=== PATIENT | female | born 1995 | race Caucasian/White ===

== ENCOUNTER 2022-07-27 17:22 | Observation (INO) | payer BC ==
--- NOTE | 2022-07-27 17:36 | ED ---
General Adult HPI - General Source: patient, RN notes reviewed Mode of arrival: ambulatory <Jerri Tai - Last Filed: 07/28/22 02:07> <Rose Cardona - Last Filed: 07/28/22 23:05> - General Chief complaint: ENT Stated complaint: Throat pain Time Seen by Provider: 07/27/22 17:23 - History of Present Illness Initial comments: 26 year old female with no significant past medical history presents to the emergency department with a chief complaint of sore throat. She reports that she has had a sore throat for 4 days. She was seen at her PCP who started her on Augmentin. She reportssymptomatically relief to starting the antibiotic. She is reporting accompanying symptoms of fever, cough, pulse limitations. She denies any nausea, vomiting, chest pain, shortness of breath, dyspnea. She reports that this has never happened before. (Jerri Tai) - Related Data Home Medications Medication Instructions Recorded Confirmed Amoxic-Pot Clav 875-125Mg 1 tab PO BID 07/27/22 07/27/22 [Augmentin 875-125] Dm & D-Chiro Inositol 2,060 mg PO BID 07/27/22 07/27/22 [place]-3 Fatty Acids [[place]-3] 1,000 mg PO HS 07/27/22 07/27/22 Nog-Jnae-Qigkb Acid 1 cap PO HS 07/27/22 07/27/22 [-U Capsule (formulary)] Allergies Allergy/AdvReac Type Severity Reaction Status Date / Time No Known Allergies Allergy Verified 07/27/22 17:35 Review of Systems ROS Other: All systems not noted in ROS Statement are negative. <Jerri Tai - Last Filed: 07/28/22 02:07> ROS Other: All systems not noted in ROS Statement are negative. <Rose Cardona - Last Filed: 07/28/22 23:05> ROS Statement: Those systems with pertinent positive or pertinent negative responses have been documented in the HPI. Past Medical History Additional Past Medical History / Comment(s): low iron History of Any Multi-Drug Resistant Organisms: None Reported Past Surgical History: Section Past Psychological History: No Psychological Hx Reported Smoking Status: Never smoker Past Alcohol Use History: None Reported Past Drug Use History: None Reported - Past Family History Mother Family Medical History: Hypertension <Jerri Tai - Last Filed: 07/28/22 02:07> General Exam General appearance: alert, in no apparent distress Head exam: Present: atraumatic, normocephalic, normal inspection Eye exam: Present: normal appearance, PERRL, EOMI. Absent: scleral icterus, conjunctival injection, periorbital swelling ENT exam: Present: normal exam, mucous membranes moist. Absent: normal oropharynx Expanded Mouth exam: Present: normal external inspection, tongue normal. Absent: leticia oling, trismus, muffled voice Throat exam: tonsillar erythema, tonsillomegaly, tonsillar exudate, R peritonsillar mass. negative: normal inspection Neck exam: Present: normal inspection, tenderness, lymphadenopathy. Absent: meningismus Expanded Neck exam: Present: tenderness Respiratory exam: Present: normal lung sounds bilaterally. Absent: respiratory distress, wheezes, rales, rhonchi, stridor Cardiovascular Exam: Present: regular rate, normal rhythm, normal heart sounds. Absent: systolic murmur, diastolic murmur, rubs, gallop, clicks GI/Abdominal exam: Present: soft, normal bowel sounds. Absent: distended, tenderness, guarding, rebound, rigid Extremities exam: Present: normal inspection, full ROM, normal capillary refill. Absent: tenderness, pedal edema, joint swelling, calf tenderness Back exam: Present: normal inspection Neurological exam: Present: alert, oriented X3, CN II-XII intact Psychiatric exam: Present: normal affect, normal mood Skin exam: Present: warm, dry, intact, normal color. Absent: rash <Jerri Tai - Last Filed: 07/28/22 02:07> Course <Jerri Tai - Last Filed: 07/28/22 02:07> Vital Signs 07/27/22 07/27/22 17:24 18:47 Temperature 98.7 F Pulse Rate 123 H 99 Respiratory 18 18 Rate Blood Pressure 148/102 124/77 O2 Sat by Pulse 98 95 Oximetry - Reevaluation(s) Reevaluation #1: 07/27/22 18:[address] Azevedo who agrees and accepts the patient for admission. (Jerri Tai) Medical Decision Making <Jerri Tai - Last Filed: 07/28/22 02:07> - Lab Data Result diagrams: 07/28/22 06:27 07/28/22 06:27 <Rose Cardona - Last Filed: 07/28/22 23:05> - Medical Decision Making Was pt. sent in by a medical professional or institution (LIBORIO Bonilla, SITE FOREMAN, urgent care, hospital, or long term...) When possible be specific @ -[No] Did you speak to anyone other than the patient for history (EMS, parent, family, police, friend...)? What history was obtained from this source @ -[No] Did you review nursing and triage notes (agree or disagree)? Why? @ -[I reviewed and agree with nursing and triage notes] Were old charts reviewed (outside hosp., previous admission, EMS record, old EKG, old radiological studies, urgent care reports/EKG's, long term records)? Report findings @ -[No old charts were reviewed] Differential Diagnosis (chest pain, altered mental status, abdominal pain women, abdominal pain men, vaginal bleeding, weakness, fever, dyspnea, syncope, headache, dizziness, GI bleed, back pain, seizure, CVA, palpatations, mental health, musculoskeletal)? @ -[not applicable] EKG interpreted by me (3pts min.). @ -[As above] X-rays interpreted by me (1pt min.). @ -[None done] CT interpreted by me (1pt min.). @ -[None done] U/S interpreted by me (1pt. min.). @ -[None done] What testing was considered but not performed or refused? (CT, X-rays, U/S, labs)? Why? @ -[None] What meds were considered but not given or refused? Why? @ -[None] Did you discuss the management of the patient with other professionals (professionals i.e. LIBORIO Bonilla, SITE FOREMAN, lab, RT, psych nurse, social contact worker, staff reporter, teacher, supply officer, family caseworker)? Give summary @ -[No] Was smoking cessation discussed for >3mins.? @ -[No] Was critical care preformed (if so, how long)? @ -[No] Were there social determinants of health that impacted care today? How? (Homelessness, low income, unemployed, alcoholism, drug addiction, transportation, low edu. Level, literacy, decrease access to med. care, fdc, rehab)? @ -[No] Was there de-escalation of care discussed even if they declined (Discuss DNR or withdrawal of care, Hospice)? DNR status @ -[No] What co-morbidities impacted this encounter? (DM, HTN, Smoking, COPD, CAD, Cancer, CVA, ARF, Chemo, Hep., AIDS, mental health diagnosis, sleep apnea, morbid obesity)? @ -[None] Was patient admitted / discharged? Hospital course, mention meds given and route, prescriptions, significant lab abnormalities, going to OR and other pertinent info. @ -Admission. This is a 26-year-old female who presents to the emergency department via [facility] transfer for admission and evaluation for ENT. Patient had lab work and imaging performed at [facility] which revealed a 5 mm abscess to the right peritonsillar area. White blood cell count was 9.5. Patient remains to be tachycardic however she is afebrile. Patient was given IV fluids and Toradol with symptomatic relief. Case discussed with ryan Franks group on-call who agrees and accepts the patient for admission. Case discussed with Dr. Cardona [facility] Undiagnosed new problem with uncertain prognosis? @ -[No] Drug Therapy requiring intensive monitoring for toxicity (Heparin, Nitro, Insulin, Cardizem)? @ -[No] Were any procedures done? @ -[No] Diagnosis/symptom? @ - peritonsilar abscess Acute, or Chronic, or Acute on Chronic? @ -acute Uncomplicated (without systemic symptoms) or Complicated (systemic symptoms)? @ -complicated Side effects of treatment? @ -[No] Exacerbation, Progression, or Severe Exacerbation? @ -[No] Poses a threat to life or bodily function? How? (Chest pain, USA, VT, pneumonia, PE, COPD, DKA, ARF, appy, cholecystitis, CVA, Diverticulitis, Homicidal, Suicidal, threat to staff... and all critical care pts) @ -moderate likelihood (Jerri Tai) Disposition Is patient prescribed a controlled substance at d/c from ED?: No Time of Disposition: 18:02 <Jerri Tai - Last Filed: 07/28/22 02:07> <Rose Cardona - Last Filed: 07/28/22 23:05> Clinical Impression: Sore throat, Peritonsillar abscess Disposition: ADMITTED IP TO THIS HOSP Condition: Fair
[2022-07-27] MEDS ORDERED: ACETAMINOPHEN TAB 325 MG TAB PO PRN (18:03)
[2022-07-27] MEDS ORDERED: NALOXONE 0.4 MG/ML 1 ML VIAL IV PRN (18:03)
[2022-07-27] MEDS ORDERED: IBUPROFEN 400 MG TAB PO PRN (18:03)
[2022-07-27] MEDS: SODIUM CHLORIDE 0.9% 1,000 ML IV SCH (18:49)
[2022-07-27] MEDS ORDERED: KETOROLAC 15 MG/ML 1 ML VIAL IVP STA (18:51)
[2022-07-27] MEDS: BENZOCAINE/MENTHOL LOZENG 1 EACH LOZENGE MUCOUS MEM PRN (21:33)
--- NOTE | 2022-07-28 00:32 | P.HPIM ---
History of Present Illness H&P Date: 07/27/22 The patient is a 26-year-old female with no known PMH with presented to the emergency room at [facility] with complaints of sore throat and fever. The patient states that her symptoms started this past Thursday 4 days ago and gradually progressed. She reports being seen at her PCPs clinic and was started on Augmentin 2 days ago, which did not alleviate her symptoms. She reports a T-max of 102F at home as well as predominantly right-sided sore throat 10 out of 10 on maximal intensity with odynophagia. The patient underwent a CT neck and soft tissue with contrast which revealed moderate diffuse problem and some heterogeneity of the bilateral pelvic and tonsils suggestive of tonsillitis as well as a 5 mm fluid collection suggestive of abscess in the margin of the right tonsils. There was also mild a lymphadenopathy in the neck. Laboratory for evaluation was remarkable for WBC count 9.55, hemoglobin 14.7, platelets 289, group A strep PCR negative and mononucleosis screen also negative, sodium 139, potassium 4.3, chloride 101, CO2 26.6, BUN 6.9, creatinine 0.6, glucose 97. The patient was subsequently transferred to [facility] for ENT evaluation and further management. The patient reports that her pain is improved to 5 out of 10 at the time of interview. She reports that her odynophagia is also improved significantly. She denied shortness of breath. Denied any prior history of tonsillar infections. ED documentation reviewed and case discussed with ED provider. Review of systems: Pertinent positives and negatives as discussed in HPI, a complete review of systems was performed and all other systems are negative. Physical examination: Vital signs reviewed General: non toxic, no distress, appears at stated age, morbidly obese Derm: no unusual rashes/lesions, warm Head: atraumatic, normocephalic, symmetric Eyes: EOMI, no lid lag, anicteric sclera, pupils equal round reactive to light ENT: Nose and ears atraumatic Neck: No cervical lymphadenopathy, trachea midline, supple Mouth: no lip lesion, mucus membranes moist, right-sided tonsillar exudates with tonsillar enlargement and surrounding erythema noted Cardiovascular: S1S2 reg, no murmur, positive dorsalis pedis pulse bilateral, no edema Lungs: CTA bilateral, no rhonchi, no rales, no accessory muscle use Abdominal: soft, nontender to palpation, no guarding Ext: muscle strength 5 out of 5 in all 4 extremities grossly, no gross muscle atrophy, no contractures, Neuro: CN II-XI grossly intact, no gross focal neuro deficits Psych: Alert, oriented, appropriate affect Assessment: Right peritonsillar abscess Imaging: CT neck and soft tissue with contrast which revealed moderate diffuse problem and some heterogeneity of the bilateral pelvic and tonsils suggestive of tonsillitis as well as a 5 mm fluid collection suggestive of abscess in the margin of the right tonsils. There was also mild a lymphadenopathy in the neck. Data Review: Laboratory for evaluation was remarkable for WBC count 9.55, hemoglobin 14.7, platelets 289, group A strep PCR negative and mononucleosis screen also negative, sodium 139, potassium 4.3, chloride 101, CO2 26.6, BUN 6.9, creatinine 0.6, glucose 97. Plan: -Continue clindamycin at a dose of 600 mg IV every 6 hourly -Continue IV fluids normal saline 75 mL per hour -Pain control with Motrin when necessary -ENT consulted DVT prophylaxis: Heparin subcu The patient is admitted with an anticipated less than 2 midnight stay for evaluation of peritonsillar abscess CODE STATUS: Full Code Discussed with: Patient Anticipated discharge place: Home Past Medical History Additional Past Medical History / Comment(s): low iron History of Any Multi-Drug Resistant Organisms: None Reported Past Surgical History: Section Past Psychological History: No Psychological Hx Reported Smoking Status: Never smoker Past Alcohol Use History: None Reported Past Drug Use History: None Reported - Past Family History Mother Family Medical History: Hypertension Medications and Allergies Home Medications Medication Instructions Recorded Confirmed Type Amoxic-Pot Clav 875-125Mg 1 tab PO BID 07/27/22 07/27/22 History [Augmentin 875-125] Dm & D-Chiro Inositol 2,060 mg PO BID 07/27/22 07/27/22 History [place]-3 Fatty Acids [Brandon-3] 1,000 mg PO HS 07/27/22 07/27/22 History Jcl-Zixw-Jrwns Acid 1 cap PO HS 07/27/22 07/27/22 History [-U Capsule (formulary)] Allergies Allergy/AdvReac Type Severity Reaction Status Date / Time No Known Allergies Allergy Verified 07/27/22 17:35 Physical Exam Vitals: Vital Signs Temp Pulse Pulse Resp BP BP Pulse Ox 07/27/22 21:06 97.8 F 97 18 142/90 97 07/27/22 18:47 99 18 124/77 95 07/27/22 17:24 98.7 F 123 H 18 148/102 98 Intake and Output 07/27/22 07/27/22 07/27/22 06:59 14:59 22:59 Other: Weight 130.181 kg
[2022-07-28] MEDS ORDERED: KETOROLAC 15 MG/ML 1 ML VIAL IVP STA (00:44)
[2022-07-28] MEDS: CLINDAMYCIN 600 MG in DEXTROSE 5% IN WATER 50 ML IVPB SCH ×4 (01:01→05:48)
[2022-07-28] MEDS: BENZOCAINE/MENTHOL LOZENG 1 EACH LOZENGE MUCOUS MEM PRN (06:19)
[2022-07-28] MEDS: SODIUM CHLORIDE 0.9% 1,000 ML IV SCH ×3 (09:37→19:26)
[2022-07-28] MEDS: methylPREDNISolone SOD SUCCI 125 MG/2 ML VIAL IV SCH (09:37)
[2022-07-28] MEDS: HEPARIN SODIUM,PORCINE/PF 5,000 UNIT/0.5 ML SYRINGE SQ SCH ×4 (09:37→23:56)
[2022-07-28 11:13] LABS: African American GFR (CKD) 164.3 (60.0-200.0); Anion Gap 11.7 mmol/L (10.00-18.00); BUN/Creat Ratio 26.5 Ratio (12.00-20.00); Blood Urea Nitrogen 10.6 mg/dL (9.0-27.0); Calcium 9.2 mg/dL (8.7-10.3); Carbon Dioxide 24.3 mmol/L (20.0-27.5); Non-African American GFR(CKD) 141.7 (60.0-200.0); Potassium 4.3 mmol/L (3.5-5.5)
[2022-07-28 11:14] LABS: Basophils # (A) 0.01 X 10*3/uL (0.00-0.10); Basophils % (A) 0.1 %; Eosinophils # (A) 0 X 10*3/uL (0.04-0.35); Eosinophils % (A) 0 %; HGB 13.3 g/dL (12.0-15.0); Immature Grans, Automated 0.2 %; Lymphocytes # (A) 1.41 X 10*3/uL (0.90-5.00); Lymphocytes % (A) 17.2 %; MCH 28.2 pg (27.0-32.0); MCHC 30.9 g/dL (32.0-37.0); MCV 91.3 fL (80.0-97.0); Mean Platelet Volume 11.1 fL (9.5-12.2); Monocytes # (A) 0.46 X 10*3/uL (0.20-1.00); Monocytes % (A) 5.6 %; NRBC Per 100 WBC 0 /100 WBCS (0.0-0.0); Neutrophils # (A) 6.31 X 10*3/uL (1.80-7.70); Neutrophils % (A) 76.9 %; Platelet Count 298 X 10*3/uL (140-440); RBC 4.71 X 10*6/uL (4.10-5.20); RDW 12.6 % (11.5-14.5); WBC 8.21 X 10*3/uL (4.50-10.00)
[2022-07-28] MEDS: AMPICILLIN-SULBACTAM 3 GM in SODIUM CHLORIDE 0.9% 100 ML IVPB SCH ×3 (12:32→23:55)
--- NOTE | 2022-07-28 15:30 | P.GSCN ---
History of Present Illness Consult date: 07/28/22 Reason for Consult: Severe throat pain, odontophagia, dysphasia Requesting physician: Jose M Goode History of present illness: This is a 26-year-old white female who tells me that she began having a sore throat last Thursday. He got progressively worse and on she saw her primary care physician Dr. Limon who started her on Augmentin 875. Unfortunately the infection progressed in her throat pain worsened through Thursday and Thursday. She noted on Thursday her right throat was quite swollen and on Thursday she went to the emergency room at [facility] where CAT scan was performed. The CAT scan showed palate teen tonsillar enlargement and lingual tonsillar enlargement with a right peritonsillar abscess measuring only 5 mm. Lab tests were negative mono was negative. She was transferred 5 PM yesterday to the hospital and this morning I was asked to consult. She is feeling much better on antibiotic therapy. She tells me that her throat pain is gone from a 9 due two. She is requesting discharge. Review of Systems - Constitutional Reports as per HPI Past Medical History Additional Past Medical History / Comment(s): low iron History of Any Multi-Drug Resistant Organisms: None Reported Past Surgical History: Section Past Psychological History: No Psychological Hx Reported Smoking Status: Never smoker Past Alcohol Use History: None Reported Past Drug Use History: None Reported - Past Family History Mother Family Medical History: Hypertension Medications and Allergies Home Medications Medication Instructions Recorded Confirmed Type Amoxic-Pot Clav 875-125Mg 1 tab PO BID 07/27/22 07/27/22 History [Augmentin 875-125] Dm & D-Chiro Inositol 2,060 mg PO BID 07/27/22 07/27/22 History [place]-3 Fatty Acids [[place]-3] 1,000 mg PO HS 07/27/22 07/27/22 History Shm-Ocqb-Dhqhh Acid 1 cap PO HS 07/27/22 07/27/22 History [-U Capsule (formulary)] Allergies Allergy/AdvReac Type Severity Reaction Status Date / Time No Known Allergies Allergy Verified 07/27/22 17:35 Surgical - Exam Osteopathic Statement: *. No significant issues noted on an osteopathic structural exam other than those noted in the History and Physical/Consult. Vital Signs Temp Pulse Resp BP Pulse Ox 98.7 F 123 H 18 148/102 98 07/27/22 17:24 07/27/22 17:24 07/27/22 17:24 07/27/22 17:24 07/27/22 17:24 - General well developed, well nourished, no distress, obese - Eyes PERRL, normal ocular movement - ENT Head is normocephalic the face is symmetric there's no abnormal movements, there is no tenderness to the sinuses are mastoids, there is no lesions on the scalp. Auricles well formed canals are clear. Tympanic membranes are without bulging or retraction. Nose is patent. Mouth and throat shows exudative tonsil h ypertrophy with erythema with the right side being slightly worse than the left. There is no evidence of trismus. Neck shows some cervical lymphadenopathy. normal pinna, normal nares, normal mucosa, no hearing loss, no congestion - Neck no no lymphadectomy - Respiratory normal expansion - Integumentary no rash, no growths - Neurologic normal coordination, normal sensation - Musculoskeletal normal gait, normal posture - Psychiatric oriented to time, oriented to person, oriented to place, speech is normal, memory intact Results - Labs 07/28/22 06:27 07/28/22 06:27 Abnormal Lab Results - Last 24 Hours (Table) 07/28/22 07/28/22 Range/Units 06:27 06:27 MCHC 30.9 L (32.0-37.0) g/dL Eosinophils # 0 L (0.04-0.35) X 10*3/uL Creatinine 0.4 L (0.6-1.5) mg/dL BUN/Creatinine Ratio 26.50 H (12.00-20.00) Ratio Diabetes panel 07/28/22 Range/Units 06:27 Sodium 138 (135-145) mmol/L Potassium 4.3 (3.5-5.5) mmol/L Chloride 102 (96-109) mmol/L Carbon Dioxide 24.3 (20.0-27.5) mmol/L BUN 10.6 (9.0-27.0) mg/dL Creatinine 0.4 L (0.6-1.5) mg/dL Glucose 100 (70-110) mg/dL Calcium 9.2 (8.7-10.3) mg/dL Calcium panel 07/28/22 Range/Units 06:27 Calcium 9.2 (8.7-10.3) mg/dL Pituitary panel 07/28/22 Range/Units 06:27 Sodium 138 (135-145) mmol/L Potassium 4.3 (3.5-5.5) mmol/L Chloride 102 (96-109) mmol/L Carbon Dioxide 24.3 (20.0-27.5) mmol/L BUN 10.6 (9.0-27.0) mg/dL Creatinine 0.4 L (0.6-1.5) mg/dL Glucose 100 (70-110) mg/dL Calcium 9.2 (8.7-10.3) mg/dL Adrenal panel 07/28/22 Range/Units 06:27 Sodium 138 (135-145) mmol/L Potassium 4.3 (3.5-5.5) mmol/L Chloride 102 (96-109) mmol/L Carbon Dioxide 24.3 (20.0-27.5) mmol/L BUN 10.6 (9.0-27.0) mg/dL Creatinine 0.4 L (0.6-1.5) mg/dL Glucose 100 (70-110) mg/dL Calcium 9.2 (8.7-10.3) mg/dL Assessment and Plan (1) Pharyngotonsillitis Current Visit: Yes Status: Acute Code(s): J03.90 - ACUTE TONSILLITIS, UNSPECIFIED; J02.9 - ACUTE PHARYNGITIS, UNSPECIFIED SNOMED Code(s): 179927581 Plan: The patient is doing much better on steroids and IV antibiotics. I think she would be an excellent candidate for discharge tomorrow morning. I would continu e her on Augmentin and add prednisone and a 10 day taper starting at 40 mg. I've given her my card and she is to follow up with me on an outpatient basis if further throat issues persist. There is no reason to attempt to drain a 5 mm abscess since it so small. We keep her on antibiotics for at least 14 days. She is to call me on an outpatient basis if any problems should arise. Time with Patient: Greater than 30
--- NOTE | 2022-07-28 18:00 | P.PN ---
Subjective Progress Note Date: 07/28/22 Hospital course: Patient is a very pleasant 26-year-old female with no reported past medical history. She presented to the emergency department secondary to sore throat and fever beginning approximately 4 days ago. She presented to [facility] where she underwent full evaluation. A CT soft tissues of neck was completed revealing a 5 mm fluid collection suggestive of tonsillar abscess of right tonsil along with mild lymphadenopathy in the neck. Labs were completed. CBC and CMP were unremarkable. WBC count is 8.21. Patient was started on Unasyn and admitted under our services with consultation to ENT for evaluation for possible drainage of tonsillar abscess. Physical exam: Vital signs reviewed and stable. General: Nontoxic, no distress and appears stated age. Derm: Skin warm and dry, normal coloration for ethnicity. Head/neck: Atraumatic, normocephalic and symmetric. Lymphadenopathy Lateral neck Eyes: EOMs intact, no lid lag, and anicteric sclera Mouth: no lip lesions, mucus membranes moist. Pharyngeal erythema and enlarged tonsil right greater than left Cardiovascular: regular rate and rhythm with normal S1S2, no murmur, positive posterior tibial pulses bilaterally, and cap refill < 2 seconds. Lungs: Respirations even, regular, and unlabored on room air. Lungs CTA bilaterally, no rhonchi, no rales, no wheezing, and no accessory muscle usage. Abdominal: soft, nontender to palpation, no guarding, no appreciable organomegaly Ext: ROM intact. No gross muscle atrophy, no edema, no contractures Neuro: Speech clear, face symmetrical and CN II-XII grossly intact with no noted focal neuro deficits Psych: Alert and oriented to person, place, time, and situation. Appropriate and pleasant affect. Assessment and Plan of Care: Right Peritonsillar abscess -ENT consulted and awaiting evaluation. -Patient to continue with IV antibiotics Unasyn 3 g every 6 hours. -Cepacol lozenges to be given every 4 hours as needed for sore throat. -Patient may have Tylenol and/or Motrin as needed for pain and/or fevers. -Continue with Solu-Medrol 60 mg daily pending further evaluation and recommendations by ENT. CODE STATUS: Full code DVT prophylaxis: Heparin Discussed with: Patient and RN Anticipated discharge date:Within the next [address]: Home Patient was seen independently by Nurse Pracitioner. This document was prepared using [employer] dictation software. Please allow for errors in sales designer, while rare they do occur. Eh Hinojosa INTERNATIONAL LOGISTICS ANALYST rendered care for this patient independently, reviewed the findings and plan as documented in the note above. I did not physically speak with or examine the patient on this date. Objective - Vital Signs Vital signs: Vital Signs Temp 98.4 F 07/28/22 07:00 Pulse 80 07/28/22 07:00 Resp 18 07/28/22 07:00 BP 110/76 07/28/22 07:00 Pulse Ox 99 07/28/22 07:00 FiO2 Intake & Output 07/27/22 07/28/22 07/28/22 18:59 06:59 18:59 Intake Total 500 Balance 500 Weight 130.181 kg 130.181 kg Intake: Oral 500 Other: Voiding Method Toilet - Labs CBC & Chem 7: 07/28/22 06:27 07/28/22 06:27
--- NOTE | 2022-07-28 21:39 | P.CONS ---
History of Present Illness - Reason for Consult Consult date: 07/28/22 - History of Present Illness Patient is a 26-year female apparently started getting sick about 4 days ago and the symptoms started predominantly with sore throat and fever patient's symptoms continue to get worse and the patient was seen by the PCP and was started on Augmentin 2 days prior to presentation the hospital however the patient did have worsening of the symptom mostly sore throat difficulty swallowing as well as difficulty in breathing and the patient did have a fever of 102 degree for night symptom was mostly on the right side with the symptom the patient was evaluated at [facility] with the patient did have a CT of the neck and soft tissue with contrast which shows moderate diffuse tonsillar enlargement tonsillitis and concern for possible 5 mm fluid collection suggestive of abscess in the margin of the right tonsil patient did have elevated white count patient was subsequently transferred to [facility] to be evaluated by ENT on presentation to the hospital had the patient was afebrile patient did have a normal white count kidney function was normal patient was started on Unasyn infectious disease was consulted for further management of antibiotic therapy Past Medical History Additional Past Medical History / Comment(s): low iron History of Any Multi-Drug Resistant Organisms: None Reported Past Surgical History: Section Past Psychological History: No Psychological Hx Reported Smoking Status: Never smoker Past Alcohol Use History: None Reported Past Drug Use History: None Reported - Past Family History Mother Family Medical History: Hypertension Medications and Allergies Home Medications Medication Instructions Recorded Confirmed Type Amoxic-Pot Clav 875-125Mg 1 tab PO BID 07/27/22 07/27/22 History [Augmentin 875-125] Dm & D-Chiro Inositol 2,060 mg PO BID 07/27/22 07/27/22 History [place]-3 Fatty Acids [[place]-3] 1,000 mg PO HS 07/27/22 07/27/22 History Ral-Cefx-Pogcf Acid 1 cap PO HS 07/27/22 07/27/22 History [-U Capsule (formulary)] Allergies Allergy/AdvReac Type Severity Reaction Status Date / Time No Known Allergies Allergy Verified 07/27/22 17:35 Physical Exam Vitals: Vital Signs Temp Pulse Pulse Resp BP BP Pulse Ox 07/28/22 07:00 98.4 F 80 18 110/76 99 07/27/22 23:57 18 07/27/22 21:06 97.8 F 97 18 142/90 97 07/27/22 18:47 99 18 124/77 95 07/27/22 17:24 98.7 F 123 H 18 148/102 98 Intake and Output 07/27/22 07/28/22 07/28/22 22:59 06:59 14:59 Intake Total 250 250 Balance 250 250 Intake: Oral 250 250 Other: Voiding Method Toilet Weight 130.181 kg Results CBC & Chem 7: 07/28/22 06:27 07/28/22 06:27 Labs: Abnormal Lab Results - Last 24 Hours (Table) 07/28/22 07/28/22 Range/Units 06:27 06:27 MCHC 30.9 L (32.0-37.0) g/dL Eosinophils # 0 L (0.04-0.35) X 10*3/uL Creatinine 0.4 L (0.6-1.5) mg/dL BUN/Creatinine Ratio 26.50 H (12.00-20.00) Ratio Assessment and Plan Plan: 1-Patient was in the hospital with significant sore throat mostly involving the right side of the throat neck area along with difficulty swallowing and fever this patient has been diagnosed with a right peritonsillar abscess and significant tonsillopharyngitis will need to cover for the oral emmanuel to be the likely pathogen failing outpatient oral Augmentin because of the burden of disease 2-await ENT evaluation and need for any surgical intervention 3-Unasyn 3 g every 6 hours will provide adequate coverage at this point which will be continued We will follow on clinical condition and cultures to further adjust medication if needed Thank you for this consultation we will follow the patient along with you Time with Patient: Greater than 30
[2022-07-29 03:02] VITALS: RESP 18
[2022-07-29] MEDS: AMPICILLIN-SULBACTAM 3 GM in SODIUM CHLORIDE 0.9% 100 ML IVPB SCH (05:51)
[2022-07-29 06:52] VITALS: BP 122/85; PULSE 71; TEMP 97.9
[2022-07-29] MEDS: HEPARIN SODIUM,PORCINE/PF 5,000 UNIT/0.5 ML SYRINGE SQ SCH (08:36)
[2022-07-29] MEDS: methylPREDNISolone SOD SUCCI 125 MG/2 ML VIAL IV SCH (08:37)
--- NOTE | 2022-07-29 10:06 | P.DS ---
Providers Date of admission: 07/27/22 18:03 Expected date of discharge: 07/29/22 Attending physician: Jose M Goode MD Consults: 07/27/22 18:03 Consult Physician Routine Consulting Provider: Bowen Keita Consult Reason/Comments: 5mm peritonsilar abscess Do you want consulting provider notified?: Yes 07/28/22 08:13 Consult Physician Routine Consulting Provider: Lisset Koo Consult Reason/Comments: peritonsilar infection Do you want consulting provider notified?: Yes Primary care physician: Meng Limon DO Hospital Course: Assessment Right Peritonsillar abscess Hospital course: Patient is a very pleasant 26-year-old female with no reported past medical history. She presented to the emergency department secondary to sore throat and fever beginning approximately 4 days ago. She presented to [facility] where she underwent full evaluation. A CT soft tissues of neck was completed revealing a 5 mm fluid collection suggestive of tonsillar abscess of right tonsil along with mild lymphadenopathy in the neck. Labs were completed. CBC and CMP were unremarkable. WBC count is 8.21. Patient was started on Unasyn and admitted under our services with consultation to ENT for evaluation for possible drainage of tonsillar abscess. Patient was seen by ENT, who did not recommend drainage of abscess due to very small size. They recommended Augmentin and prednisone for a total 10 days. Patient was discharged on these medications and instructed follow-up with primary care physician. Patient says her symptoms significantly improved by time of discharge. Gen: awake, alert HEENT: normocephalic, atraumatic, good hearing acuity, moist mucous membranes Resp: good air exchange, breathing comfortably with no accessory muscle use CVS: good distal perfusion x 4, GI: soft, NTTP, ND : no SPT, no CVAT, chung catheter not present MSK: no pitting edema, no clubbing Neuro: non-focal, moving all extremities Psych: cooperative, euthymic moodno Patient Condition at Discharge: Good Plan - Discharge Summary New Discharge Prescriptions: New Acetaminophen Tab [Tylenol] 650 mg PO Q6HR PRN tab PRN Reason: Mild Pain Or Fever > 100.5 predniSONE [Deltasone] 40 mg PO DAILY #6 tab Continue Igq-Vpgw-Cveyq Acid [-U Capsule (formulary)] 1 cap PO HS Amoxic-Pot Clav 875-125Mg [Augmentin 875-125] 1 tab PO BID 9 Days #18 tab [place]-3 Fatty Acids [[place]-3] 1,000 mg PO HS Dm & D-Chiro Inositol 2,060 mg PO BID Discharge Medication List Dm & D-Chiro Inositol 2,060 mg PO BID 07/27/22 [History] [place]-3 Fatty Acids [[place]-3] 1,000 mg PO HS 07/27/22 [History] Sre-Hdvs-Otrro Acid [-U Capsule (formulary)] 1 cap PO HS 07/27/22 [History] Acetaminophen Tab [Tylenol] 650 mg PO Q6HR PRN tab 07/29/22 [Rx] Amoxic-Pot Clav 875-125Mg [Augmentin 875-125] 1 tab PO BID 9 Days #18 tab 0 07/29/22 [Rx] predniSONE [Deltasone] 40 mg PO DAILY #6 tab 07/29/22 [Rx] Follow up Appointment(s)/Referral(s): Meng Limon DO [Primary Care Provider] - 1-2 days Patient Instructions/Handouts: Strep Throat (DC) Discharge Disposition: HOME SELF-CARE
== END 2022-07-29 09:39 | disposition home or self-care (01) ==
LOC: EC 17:22 → 6NMEDSUR 18:03
PROVIDERS: ADMIT Student in an Organized Health Care Education/Training Program; ATTEND Student in an Organized Health Care Education/Training Program
DX: J36 Peritonsillar abscess (principal); R00.0 Tachycardia, unspecified; Z98.891 History of uterine scar from previous surgery; Z82.49 Family history of ischemic heart disease and other diseases of the circulatory system
CPT/HCPCS: 96376 ×2; 96361 ×3; 96365; 96366 ×2; 96367; 96375 ×2; 99284; 80048; 85025; G0378 ×3; J2930 ×2; J0295 ×2; J1885 ×2